=== PATIENT | male | born 2000 | race Caucasian/White ===

== ENCOUNTER 2020-07-06 07:31 | Emergency (ER) | payer OTHER ==
[~2020-07-06] VITALS: Ht 172.7 cm; Wt 54.0 kg
[2020-07-06 07:36] VITALS: BP 137/81
--- NOTE | 2020-07-06 07:36 | NUR ---
PATIENT AMBULATED TO ER BED 2.
--- NOTE | 2020-07-06 07:43 | NUR ---
19 YEAR OLD MALE COMPLAINS OF HEADACHE AND VOMITTING X 3 DAYS. PT STATES HE FEELS NAUSEA CURRENTLY, BUT DOES NOT HAVE ANY ABDOMINAL PAIN. PT DENIES ANY CHANGE IN DEFECATION OR BLOOD IN STOOLS. PT AOX4, BREATHING EVEN AND UNLABORED, SKIN WARM AND DRY. BED IN LOWEST POSITION, LOCKED, BED RAIL UPX1. PMH - DENIES ALLERGIES - NKA
[2020-07-06] MEDS ORDERED: KETOROLAC 15 MG/ML VIAL IVP STA (08:11)
[2020-07-06] MEDS ORDERED: NACL 0.9% 1,000 ML IV STA (08:11)
[2020-07-06] MEDS ORDERED: METOCLOPRAMIDE 10 MG/2 ML INJ VIAL IVP ONE (08:15)
--- NOTE | 2020-07-06 08:30 | NUR ---
PT ALERT AND AWAKE, BREATHING EVEN AND UNLABORED
[2020-07-06] MEDS ORDERED: KETOROLAC 15 MG/ML VIAL IVP ONE (09:00)
--- NOTE | 2020-07-06 09:30 | NUR ---
Patient discharged with v/s stable. Written and verbal after care instructions about migraine headache given and explained. Patient alert, oriented and verbalized understanding of instructions. Ambulatory with steady gait. All questions addressed prior to discharge. ID band removed. Patient advised to follow up with PMD. Rx of excedrin migraine given. Patient educated on indication of medication including possible reaction and side effects. Opportunity to ask questions provided and answered.
[2020-07-06 09:33] VITALS: BP 111/68
== END 2020-07-06 09:30 | disposition home or self-care (01) ==
LOC: MED 07:31
DX: G43.909 Migraine, unspecified, not intractable, without status migrainosus (principal); D64.9 Anemia, unspecified
CPT/HCPCS: 70450; 96361; 96374; 96375; 96376; 99284; J1885; J2765; J7030